=== PATIENT | male | born 1970 | race Caucasian/White ===

== ENCOUNTER 2017-12-20 11:37 | Emergency (ER) | payer MEDICAID ==
[~2017-12-20] VITALS: Ht 177.8 cm; Wt 68.2 kg
[2017-12-20 11:50] VITALS: Ht 177.8 cm; Wt 68.2 kg
[2017-12-20 17:29] VITALS: BP 185/105
== END 2017-12-20 17:29 | disposition home or self-care (01) ==
LOC: D.ER 11:37
DX: L02.11 Cutaneous abscess of neck (principal)

== ENCOUNTER 2020-08-13 01:11 | Inpatient (IN) | payer MEDICAID ==
[~2020-08-13] VITALS: Ht 177.8 cm; Wt 73.6 kg
[2020-08-13] VITALS (25 sets, daily range): BP systolic 90–141; BP diastolic 50–95; Ht 177.8 cm; Wt 73.6 kg
--- NOTE | 2020-08-13 01:16 | NUR ---
TRAUMA BAND NUMBER [id number]
--- NOTE | 2020-08-13 01:16 | NUR ---
BLOOD CONSENT OBTAINED.
[2020-08-13 01:27] LABS: BASOPHILS 0.6 % (0-2); EOSINOPHILS 0.1 % (0-7); HEMATOCRIT 25.6 % (42.0-54.0); HEMOGLOBIN 8.9 g/dL (13.5-17.5); LYMPHOCYTES 9.7 % (15-50); MCH 32.6 pg (26.0-34.0); MCHC 34.6 g/dL (31.0-37.0); MCV 94.3 fL (80.0-100.0); MEAN PLATELET VOLUME 9.2 fL (7.4-10.4); MONOCYTES 12.2 % (2-11); NEUTROPHILS 77.4 % (40-80); PLATELET COUNT 121 10x3/uL (130-400); RBC 2.72 10x6/uL (4.20-6.10); RDW 13.4 % (11.5-14.5); WBC 10.7 10x3/uL (4.8-10.8)
[2020-08-13 01:40] LABS: APTT 30.9 SECONDS (22.8-39.4); CALC OSMOLALITY 289 mosm/kg (275-300); CALCIUM 8.4 mg/dL (8.5-10.1); CARBON DIOXIDE 21.2 mmol/L (21.0-32.0); CHLORIDE - SERUM 99 mmol/L (98-107); GLUCOSE 174 mg/dL (74-106); INR 1.86 (0.85-1.17); POTASSIUM - SERUM 3.6 mmol/L (3.5-5.1); PROTIME 19.9 SECONDS (11.6-15.0); SODIUM 136 mmol/L (136-145); UREA NITROGEN 52 mg/dL (7-18); eGFR NON AFRICAN AMERICAN 38 mL/min (90-120)
[2020-08-13 02:04] LABS: ALBUMIN 3.3 g/dL (3.4-5.0); ALKALINE PHOSPHATASE 48 U/L (30-120); ALT (SGPT) 112 U/L (10-68); BILIRUBIN - TOTAL 1.16 mg/dL (0.2-1.3); CREATINE KINASE 1800 UL (21-232); LIPASE 42 U/L (73-393); MAGNESIUM - SERUM 1.8 mg/dL (1.8-2.4); PRO BNP 727 pg/mL (0-125); PROTEIN - SERUM 6.9 g/dL (6.4-8.2)
[2020-08-13 02:06] LABS: CKMB 53.9 U/L (0.0-3.6); TROPONIN-I 0.441 ng/mL (0.000-0.060)
[2020-08-13 03:38] LABS: BILIRUBIN NEGATIVE (NEGATIVE); KETONE SMALL mg/dL (NEGATIVE); NITRITE NEGATIVE (NEGATIVE); UROBILINOGEN NORMAL mg/dL (< 2)
[2020-08-13 03:40] LABS: UDS - AMPHET NEGATIVE QUAL (NEGATIVE); UDS - BARB NEGATIVE QUAL (NEGATIVE); UDS - BENZO NEGATIVE QUAL (NEGATIVE); UDS - COCAINE NEGATIVE QUAL (NEGATIVE); UDS - OPIATE NEGATIVE QUAL (NEGATIVE); UDS - PCP NEGATIVE QUAL (NEGATIVE); UDS - THC POSITIVE QUAL (NEGATIVE)
--- NOTE | 2020-08-13 05:01 | NUR ---
ESCORTED PT TO CT PRIOR TO TRANSPORTING PT TO ICU ROOM 11
--- NOTE | 2020-08-13 06:30 | NUR ---
Shift summary: Patient alert, follows commands. Blood pressure adequate, tachycardic. Pain controlled with prn Dilaudid. EKG completed, NSR with QT prolonged, placed in chart for review. See flowsheets for details.
[2020-08-13 07:12] LABS: BASOPHILS 0.2 % (0-2); EOSINOPHILS 0 % (0-7); HEMATOCRIT 22.4 % (42.0-54.0); HEMOGLOBIN 7.7 g/dL (13.5-17.5); LYMPHOCYTES 16.6 % (15-50); MCH 29.8 pg (26.0-34.0); MCHC 34.5 g/dL (31.0-37.0); MEAN PLATELET VOLUME 8.4 fL (7.4-10.4); MONOCYTES 13.3 % (2-11); NEUTROPHILS 69.9 % (40-80); RBC 2.59 10x6/uL (4.20-6.10); RDW 18.5 % (11.5-14.5)
[2020-08-13 07:37] LABS: ALBUMIN 3.1 g/dL (3.4-5.0); ALKALINE PHOSPHATASE 48 U/L (30-120); ALT (SGPT) 90 U/L (10-68); BILIRUBIN - TOTAL 1.94 mg/dL (0.2-1.3); CALCIUM 7.7 mg/dL (8.5-10.1); CHLORIDE - SERUM 105 mmol/L (98-107); CKMB 26.5 U/L (0.0-3.6); PHOSPHOROUS 3.9 mg/dL (2.5-4.9); PROTEIN - SERUM 6.2 g/dL (6.4-8.2); SODIUM 139 mmol/L (136-145); UREA NITROGEN 42 mg/dL (7-18)
[2020-08-13 07:39] LABS: APTT 31.2 SECONDS (22.8-39.4); INR 1.79 (0.85-1.17); PROTIME 19.3 SECONDS (11.6-15.0)
[2020-08-13 07:44] LABS: CALC OSMOLALITY 289 mosm/kg (275-300); CARBON DIOXIDE 29.1 mmol/L (21.0-32.0); CREATINE KINASE 1673 UL (21-232); GLUCOSE 113 mg/dL (74-106); MAGNESIUM - SERUM 3.1 mg/dL (1.8-2.4); TROPONIN-I 0.391 ng/mL (0.000-0.060); eGFR NON AFRICAN AMERICAN 84 mL/min (90-120)
[2020-08-13 07:50] LABS: MCV 86.6 fL (80.0-100.0); PLATELET COUNT 85 10x3/uL (130-400); WBC 7.4 10x3/uL (4.8-10.8)
--- NOTE | 2020-08-13 10:49 | NUR ---
UNIT OF BLOOD INFUSING WITHOUT REACTION. HIBCLENS BATH GIVEN WITH ASSISTANCES. DENIES PAIN. NO DISTRESS. DONALDO CASTELLANO. PATEINT TOLERATED FAIR. FRIENDS GIVEN UPDATES AFTER CONSENT FROM PATIENT RECEIVED.
[2020-08-13 11:23] LABS: PLATELET ESTIMATE DECREASED
[2020-08-13 11:24] LABS: ANISOCYTOSIS 1+; HYPOCHROMASIA OCC; ROULEAUX OCC
--- NOTE | 2020-08-13 14:46 | NUR ---
2ND UNIT OF BLOOD COMPLETED. GI LAB HERE. PATIENT GIVEN PREOP
[2020-08-13 15:08] LABS: HEMATOCRIT 29.5 % (42.0-54.0); HEMOGLOBIN 10.2 g/dL (13.5-17.5)
[2020-08-13 15:36] LABS: CKMB 18.3 U/L (0.0-3.6)
[2020-08-13 15:39] LABS: CREATINE KINASE 1732 UL (21-232); TROPONIN-I 0.237 ng/mL (0.000-0.060)
--- NOTE | 2020-08-13 16:05 | NUR ---
EGD COMPLETED. PATIENT AWAKE AND ALERT. DENIES PAIN. TALKED WITH DR. MORALES.
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
[2020-08-13 18:42] LABS: HEMATOCRIT 29.2 % (42.0-54.0); HEMOGLOBIN 9.9 g/dL (13.5-17.5)
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
[2020-08-13 19:13] LABS: CKMB 15.8 U/L (0.0-3.6)
[2020-08-13 19:23] LABS: CREATINE KINASE 1584 UL (21-232); TROPONIN-I 0.185 ng/mL (0.000-0.060)
[2020-08-13 23:02] LABS: HEMATOCRIT 27.4 % (42.0-54.0); HEMOGLOBIN 9.4 g/dL (13.5-17.5)
[2020-08-14] VITALS (15 sets, daily range): BP systolic 115–146; BP diastolic 78–99
[2020-08-14 04:40] LABS: BASOPHILS 0.2 % (0-2); EOSINOPHILS 0.4 % (0-7); HEMOGLOBIN 9.3 g/dL (13.5-17.5); LYMPHOCYTES 21.8 % (15-50); MCH 29.7 pg (26.0-34.0); MCHC 34.5 g/dL (31.0-37.0); MCV 86.3 fL (80.0-100.0); MEAN PLATELET VOLUME 8.6 fL (7.4-10.4); NEUTROPHILS 66.6 % (40-80); RDW 18.5 % (11.5-14.5); WBC 5.6 10x3/uL (4.8-10.8)
[2020-08-14 04:47] LABS: PLATELET COUNT 65 10x3/uL (130-400); RBC 3.12 10x6/uL (4.20-6.10)
[2020-08-14 04:48] LABS: PLATELET ESTIMATE DECREASED
[2020-08-14 04:58] LABS: ALBUMIN 2.9 g/dL (3.4-5.0); ALKALINE PHOSPHATASE 48 U/L (30-120); ALT (SGPT) 111 U/L (10-68); BILIRUBIN - TOTAL 1.06 mg/dL (0.2-1.3); CALCIUM 7.5 mg/dL (8.5-10.1); CARBON DIOXIDE 26.7 mmol/L (21.0-32.0); CHLORIDE - SERUM 104 mmol/L (98-107); CREATININE - SERUM 0.8 mg/dL (0.6-1.3); GLUCOSE 126 mg/dL (74-106); POTASSIUM - SERUM 3.3 mmol/L (3.5-5.1); PROTEIN - SERUM 5.9 g/dL (6.4-8.2); SODIUM 138 mmol/L (136-145); eGFR NON AFRICAN AMERICAN > 90 mL/min (90-120)
[2020-08-14 05:02] LABS: CALC OSMOLALITY 279 mosm/kg (275-300); MAGNESIUM - SERUM 2.1 mg/dL (1.8-2.4); PHOSPHOROUS 1.8 mg/dL (2.5-4.9); UREA NITROGEN 18 mg/dL (7-18)
--- NOTE | 2020-08-14 07:20 | NUR ---
PT LAYING IN BED RESTING COMFORTABLE, DENIES PAIN OR NEEDS AT THIS TIME, CALL LIGHT IN REACH, WILL CYNTHIA
--- NOTE | 2020-08-14 08:20 | EC ---
PATIENT:GRETCHEN BENZ DATE OF SERVICE: 08/13/20 SEX: M MEDICAL RECORD: [id number] DATE OF : 68 LOCATION:[facility] D231 AGE OF PATIENT: 49 ADMISSION DATE: 08/13/20 REFERRING PHYSICIAN: INTERPRETING PHYSICIAN: KADEEM VASQUEZ MD ECHOCARDIOGRAM REPORT ECHO CHARGES 4 ECHO COMPLETE Date: 08/13/20 CLINICAL DIAGNOSIS: HYPOTENSION, TACHYCARDIA, SYNCOPE ECHOCARDIOGRAPHIC MEASUREMENTS (adult normal given) AC root (d.<3.7cm) 3.7 cm LV Septum d (<1.2 cm> 1.2 cm Valve Excursion 1.6 cm LV Septum (systole) 1.6 cm Left Atria (s.<4.0cm> 3.1 cm LVPW d(<1.2cm) 0.9 cm RV (d.<2.3cm) 2.6 cm LVPW (sytole) 1.0 cm LV diastole(<5.6CM) 4.6 cm MV E-F(>70mm/sec) cm LV systole 3.6 cm LVOT Diameter 1.6 cm MV exc.(>10mm) 1.8 cm Est.ejection fraction (50-75%) % DOPPLER: LVIT cm/sec A 84 cm/sec E 90 cm/sec LA cm/sec RVSP 29 mmHg LVOT 106 cm/sec AOP1/2T m/s Asc. Ao 150 cm/sec RVOT 70 cm/sec RA cm/sec PA 80 cm/sec AV Gradient Peak 9.0 mmHg AV Mean 5.3 mmHg AV Area 1.7 cm MV Gradient Peak 5.2 mmHg MV Mean 2.5 mmHg MV Area cm COMMENTS: Stick Inserter: Basilia HARMAN [employer] Curer: 3 Dr. Gomez TAPE# Pericardial Effusion N DATE OF SERVICE: Adequate 2D, color-flow imaging, spectral Doppler, and M-Mode. FINDINGS: No LVH. LV internal dimensions are normal. Wall motion is normal. EF is greater than or equal to 55%. Aortic valve sclerosis without evidence of stenosis by Doppler interrogation. Left atrium is normal at 3.1 cm. Mitral valve shows no prolapse. Trace MR. Right side is grossly normal. Mild TR. TRANSINT:[id number] Voice Confirmation ID: [id number] DOCUMENT ID: [id number] ECHOCARDIOGRAM REPORT [id number] COGRETCHEN DUNAWAY,KADEEM Emerson MD at 0820 CC: [id number] DICTATION DATE: 08/13/201648 SOCIAL SCIENCES LECTURER: 08/14/20 0015 ADM IN [facility] [address] [place] [id number]
--- NOTE | 2020-08-14 12:00 | NUR ---
DR HOLLAND HERE SEEING PATIENT
[2020-08-14] MEDS ORDERED: PROTONIX40 MG PO (12:19)
--- NOTE | 2020-08-14 15:18 | NUR ---
PIVS DCD AT THIS TIME
--- NOTE | 2020-08-14 15:27 | NUR ---
PT DISCHARGED HOME AT THIS TIME, DISCHARGE INSTRUCTIONS GIVEN AND MEDICATIONS EXPLAINED, PT VERBALIZES UNDERSTANDING, NO DISTRESS NOTED, WALLET AND CELL PHONE SENT WITH PATIENT
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
== END 2020-08-14 15:29 | disposition home or self-care (01) | DRG 378 ==
LOC: D.ER 01:11 → D.ICU 02:47
PROVIDERS: Family Medicine; Internal Medicine Gastroenterology; ADMIT Family Medicine; ATTEND Family Medicine
PROC: 0DB78ZX Excision of Stomach, Pylorus, Via Natural or Artificial Opening Endoscopic, Diagnostic (ICD-10-PCS; principal; 2020-08-13 15:30)
DX: K92.2 Gastrointestinal hemorrhage, unspecified (principal); M62.82 Rhabdomyolysis; N17.9 Acute kidney failure, unspecified; I95.9 Hypotension, unspecified; D64.9 Anemia, unspecified; R77.8 Other specified abnormalities of plasma proteins